=== PATIENT | female | born 1950 | race Native Hawaiian/Other Pacific Islander ===

== ENCOUNTER 2022-01-17 14:49 | Emergency (ER) | payer OTHER ==
[~2022-01-17] VITALS: Ht 162.6 cm; Wt 48.1 kg
[2022-01-17 14:49] VITALS: BP 120/68; TEMP 97.6
[2022-01-17 15:32] LABS: PLATELET COUNT 160 K/uL (152-353)
[2022-01-17 15:38] LABS: POTASSIUM 4.1 mmol/L (3.6-5.2)
[2022-01-18] MEDS ORDERED: ARIPIPRAZOLE2 MG PO (12:03)
[2022-01-18] MEDS ORDERED: DIVALPROEX125 M1 PO (12:04)
[2022-01-18] MEDS ORDERED: TYLENOL325 MG PO (12:04)
[2022-01-18] MEDS ORDERED: DONEPEZIL HYDRO10 MG PO (12:05)
[2022-01-18] MEDS ORDERED: MEMANTINE HYDRO10 MG PO (12:06)
[2022-01-18] MEDS ORDERED: EUTHYROX150 MCG PO (12:06)
[2022-01-18] MEDS ORDERED: THERA M PLUS PO (12:07)
[2022-01-18] MEDS ORDERED: TRAZODONE HYDR150 MG PO (12:08)
[2022-01-18] MEDS ORDERED: HALO5INJ3 IM (12:09)
== END 2022-01-17 16:00 | disposition still patient (30) ==
LOC: ED 14:49
PROVIDERS: Emergency Medicine
DX: F20.89 Other schizophrenia (principal); R45.1 Restlessness and agitation; Z11.52 Encounter for screening for COVID-19; Z04.6 Encounter for general psychiatric examination, requested by authority
CPT/HCPCS: 80053; 85027; 87635; 93005; 99283; U0003